=== PATIENT | female | born 1950 | race Caucasian/White ===

== ENCOUNTER → 2016-11-03 | Outpatient (CLI) | payer BC ==
[~2016-11-03] MED LIST: ARTHROTEC50 MG PO; CIPRO500 MG PO; HYDROCODONE BIT1 T11 PO; LIPITOR10 MG PO; MULTIPLE VITAMI1 CTB; NORVASC5 MG PO; OYSTER SHELL1000 MG PO; VICODIN 500 MG-1 TAB PO; VITAMIN D400 I1; XANAX0.5 MG PO; ZANTAC150 MG PO
[2016-11-03 12:15] LABS: BASO % 0.8 % (0.0-1.0); EOS # 0.1 10*3/uL (0.0-0.4); EOS % 2.4 % (1.0-4.0); HEMATOCRIT 40.6 % (37.0-47.0); HEMOGLOBIN 13.3 g/dl (12.0-16.0); LYMPH # 1.2 10*3/uL (1.3-4.4); LYMPH % 32.6 % (27.0-41.0); MEAN CELL VOLUME 95.1 fl (81.0-99.0); MEAN CORPUSCULAR HGB 31.1 pg (27.0-31.0); MEAN CORPUSCULAR HGB CONC 32.8 g/dl (33.0-37.0); MEAN PLATELET VOLUME 10.1 fl (9.6-12.3); MONO # 0.3 10*3/uL (0.1-1.0); MONO % 8.9 % (3.0-9.0); PLATELET COUNT AUTOMATED 230 10*3/uL (130-400); RED BLOOD COUNT 4.27 10*6/uL (4.10-5.10); RED CELL DISTRI WIDTH 12.9 % (0-14.5); WHITE BLOOD COUNT 3.7 10*3/uL (4.8-10.8)
[2016-11-03 12:19] LABS: ALKALINE PHOSPHATASE 44 U/L (45-117); BILIRUBIN, TOTAL 0.5 mg/dl (0.2-1.0); BUN 15 mg/dl (7-24); CARBON DIOXIDE 28 mmol/L (21-32); CHLORIDE 108 mmol/L (98-107); CHOLESTEROL 278 mg/dL (<200); EST GLOM FILT AFRICAN AMERICAN > 60 ml/min; FREE T4 0.96 ng/dl (0.76-1.46); GLUCOSE 95 mg/dL (65-99); HDL CHOLESTEROL 65 mg/dl (40-60); LDL CHOLESTEROL 189 mg/dL (9-159); POTASSIUM 4.1 mmol/L (3.5-5.1); SGOT/AST 15 IU/L (3-35); SGPT/ALT 44 U/L (12-78); SODIUM 143 mmol/L (136-145); TOTAL PROTEIN 7.4 gm/dL (6.4-8.2); TRIGLYCERIDES 120 mg/dl (<150); VLDL CHOLESTEROL 24 mg/dL (6-40)
[2016-11-03 12:51] LABS: VITAMIN D, 25-HYDROXY 29.9 ng/mL (30-100)
[2016-11-03 12:56] LABS: FOLIC ACID > 24.00 ng/mL (>5.38)
== END | disposition home or self-care (01) ==
LOC: LAB 11:08
PROVIDERS: Internal Medicine
DX: Z00.00 Encounter for general adult medical examination without abnormal findings (principal); Z13.1 Encounter for screening for diabetes mellitus; Z13.21 Encounter for screening for nutritional disorder; Z13.220 Encounter for screening for lipoid disorders; R53.81 Other malaise; E55.9 Vitamin D deficiency, unspecified

== ENCOUNTER → 2017-08-11 | Day surgery (SDC) | payer OTHER ==
[~2017-08-11] MED LIST changes: +OMEPRAZOLE D/R20 MG PO
--- NOTE | ~2017-08-11 | O ---
[place], [place] OPERATIVE NOTE NAME: HARIS MATA UNIT #: [id number] ROOM: DOCTOR: ELLIOTT HAGEN MD BIRTHDATE: [birth year] DOS: 08/11/2017 GASTROENDOSCOPIC REPORT INDICATIONS: The patient is a 66-year-old with chief complaint of dyspepsia, dysphagia as well as colonic screening. ALLERGIES: No known medication. PAST MEDICAL HISTORY: Diabetes, hypertension, hyperlipidemia. PAST SURGICAL HISTORY: Appendectomy. FAMILY HISTORY: Noncontributory. PROCEDURE: Today's procedure part of investigation is panendoscopy and colonoscopy. PREMEDICATION: Versed and Diprivan. SCOPE: Olympus forward-viewing gastroscope Q10 video. REPORT: After putting the patient in left lateral position and application of lubricant to the scope, the scope was introduced. Thereafter, under direct visualization, advanced through the length of esophagus without difficulty. Esophagus cervicothoracic distally carefully examined and distal esophagitis, hiatal hernia, esophageal benign stricture, all were noticed so far. Hiatal hernia approximately 1 cm and half. Gastric pouch was entered. Gastritis seen. Antral biopsy obtained for H. pylori. Duodenal bulb, second and third part within normal limits. The patient was gradually extubated to the proximal stomach. Balloon size 20 was introduced into the gastric pouch and dilated and inflated to size 20 and orally gradually extubated. Highest resistance and mid esophagus and upper esophageal anatomy was experienced. Air was suctioned out. The patient was extubated, tolerated procedure well. IMPRESSION: Benign esophageal stricture, status post balloon dilation to size 20. Small hiatal hernia, distal esophagitis, gastritis, status post biopsy. PLAN AND DISCUSSION: We are going to keep her on a trial of PPI therapy, i.e., omeprazole 40 mg 1 daily and we will proceed with colonoscopic evaluation. [place], [place] OPERATIVE NOTE NAME: HARIS MATA UNIT #: [id number] ROOM: DOCTOR: ELLIOTT HAGEN MD BIRTHDATE: [birth year] ELLIOTT HAGEN MD CM:OPRECORD:OPERATIVE NOTE 1343 1403 MOIZ HAGEN MD 08/11/17 1402 interface
--- NOTE | ~2017-08-11 | O ---
[place], [place] OPERATIVE NOTE NAME: HARIS MATA UNIT #: [id number] ROOM: DOCTOR: ELLIOTT HAGEN MD BIRTHDATE: [birth year] DOS: 08/11/2017 GASTROENDOSCOPIC REPORT INDICATIONS: The patient has presented for colonic screening. PROCEDURE: Today's procedure part of investigation is colonoscopy plus multiple polypectomy. PREMEDICATION: Versed and Diprivan. SCOPE: Olympus forward-viewing colonoscope 10L video. REPORT: After putting the patient in left lateral position and application of lubricant to rectal pouch and digital examination, scope was introduced. Thereafter, under direct visualization, advanced through the length of colon without difficulty. Colon mucosa and vascularity carefully examined. Diverticulosis mostly concentrated about sigmoid colon was identified. Scope was negotiated to the cecum and gradually withdrawn. Multiple sessile polypoid lesion with snare polypectomy, hepatic flexure x 3 and from splenic flexure x 2 along with a piecemeal polypectomy. The patient was gradually extubated and tolerated procedure well. IMPRESSION: Multiple colonic polyp; 3 at hepatic flexure, 3 at the splenic flexure, status post snare and piecemeal polypectomies, diverticulosis. PLAN: High-fiber diet. ACTIVITY: Ad tenisha. FOLLOWUP: As outpatient. Thank you very much indeed for your kind referral. [place], [place] OPERATIVE NOTE NAME: HARIS MATA UNIT #: [id number] ROOM: DOCTOR: ELLIOTT HAGEN MD BIRTHDATE: [birth year] ELLIOTT HAGEN MD CM:OPRECORD:OPERATIVE NOTE 1343 1405 ELLIOTT HAGEN MD 08/11/17 1405 interface
[2017-08-11 12:12] VITALS: BP 168/91
[2017-08-11 13:38] VITALS: BP 168/91
[2017-08-11 13:52] VITALS: BP 130/69
[2017-08-11 14:07] VITALS: BP 130/72
== END ==
LOC: SDC 08-10 08:00
DX: Z12.11 Encounter for screening for malignant neoplasm of colon (principal); E11.9 Type 2 diabetes mellitus without complications; I10 Essential (primary) hypertension; E78.5 Hyperlipidemia, unspecified; Z90.49 Acquired absence of other specified parts of digestive tract; K29.50 Unspecified chronic gastritis without bleeding; K31.7 Polyp of stomach and duodenum; D12.3 Benign neoplasm of transverse colon; K57.30 Diverticulosis of large intestine without perforation or abscess without bleeding; Z87.891 Personal history of nicotine dependence; Z79.899 Other long term (current) drug therapy

== ENCOUNTER → 2017-09-01 | Outpatient (CLI) | payer OTHER ==
[2017-09-01 12:19] LABS: BASO % 0.5 % (0.0-1.0); EOS # 0.1 10*3/uL (0.0-0.4); EOS % 2.1 % (1.0-4.0); HEMATOCRIT 39.3 % (37.0-47.0); HEMOGLOBIN 13.5 g/dl (12.0-16.0); LYMPH # 1.5 10*3/uL (1.3-4.4); LYMPH % 34.7 % (27.0-41.0); MEAN CORPUSCULAR HGB 31.6 pg (27.0-31.0); MEAN CORPUSCULAR HGB CONC 34.4 g/dl (33.0-37.0); MEAN PLATELET VOLUME 10.3 fl (9.6-12.3); MONO # 0.3 10*3/uL (0.1-1.0); NEUT # 2.4 10*3/uL (2.3-7.9); NEUT % 55.5 % (47.0-73.0); PLATELET COUNT AUTOMATED 235 10*3/uL (130-400); RED BLOOD COUNT 4.27 10*6/uL (4.10-5.10); RED CELL DISTRI WIDTH 12.4 % (0-14.5); WHITE BLOOD COUNT 4.3 10*3/uL (4.8-10.8)
[2017-09-01 12:53] LABS: ALBUMIN 3.9 gm/dl (3.1-4.5); ALKALINE PHOSPHATASE 52 U/L (45-117); BUN 14 mg/dl (7-24); CHLORIDE 109 mmol/L (98-107); CHOLESTEROL 183 mg/dL (<200); CREATININE 0.74 mg/dL (0.55-1.02); HDL CHOLESTEROL 46 mg/dl (40-60); LDL CHOLESTEROL 98 mg/dL (9-159); POTASSIUM 4.1 mmol/L (3.5-5.1); SGOT/AST 22 IU/L (3-35); SGPT/ALT 54 U/L (12-78); SODIUM 143 mmol/L (136-145); TOTAL PROTEIN 7.2 gm/dL (6.4-8.2); TRIGLYCERIDES 194 mg/dl (<150); VLDL CHOLESTEROL 39 mg/dL (6-40)
[2017-09-01 13:41] LABS: VITAMIN D, 25-HYDROXY 24.6 ng/mL (30-100)
== END | disposition home or self-care (01) ==
LOC: LAB 11:46
PROVIDERS: Internal Medicine
DX: E11.9 Type 2 diabetes mellitus without complications (principal); E78.2 Mixed hyperlipidemia; R53.81 Other malaise

== ENCOUNTER → 2017-09-06 | Outpatient (CLI) | payer OTHER | END | disposition home or self-care (01) | LOC: RAD 08:00 | DX: Z78.0 Asymptomatic menopausal state (principal) ==

== ENCOUNTER → 2017-09-19 | Outpatient (CLI) | payer OTHER | END | disposition home or self-care (01) | LOC: MAMMO 03:44 | DX: Z12.31 Encounter for screening mammogram for malignant neoplasm of breast (principal) ==

== ENCOUNTER → 2018-07-02 | Outpatient (CLI) | payer OTHER ==
[2018-07-02 08:29] LABS: BASO % 0.6 % (0.0-1.0); EOS # 0.2 10*3/uL (0.0-0.4); EOS % 3.6 % (1.0-4.0); HEMATOCRIT 42.1 % (37.0-47.0); HEMOGLOBIN 13.6 g/dl (12.0-16.0); LYMPH # 1.6 10*3/uL (1.3-4.4); LYMPH % 29.5 % (27.0-41.0); MEAN CELL VOLUME 95.2 fl (81.0-99.0); MEAN CORPUSCULAR HGB 30.8 pg (27.0-31.0); MEAN CORPUSCULAR HGB CONC 32.3 g/dl (33.0-37.0); MEAN PLATELET VOLUME 10.7 fl (9.6-12.3); MONO # 0.5 10*3/uL (0.1-1.0); MONO % 8.6 % (3.0-9.0); NEUT # 3.1 10*3/uL (2.3-7.9); NEUT % 57.5 % (47.0-73.0); PLATELET COUNT AUTOMATED 230 10*3/uL (130-400); RED BLOOD COUNT 4.42 10*6/uL (4.10-5.10); RED CELL DISTRI WIDTH 12.5 % (0-14.5); WHITE BLOOD COUNT 5.3 10*3/uL (4.8-10.8)
[2018-07-02 08:36] LABS: ALKALINE PHOSPHATASE 41 U/L (45-117); BUN 16 mg/dl (7-24); CHLORIDE 109 mmol/L (98-107); CHOLESTEROL 167 mg/dL (<200); CREATININE 0.79 mg/dL (0.55-1.02); FREE T4 0.99 ng/dl (0.76-1.46); HDL CHOLESTEROL 44 mg/dl (40-60); LDL CHOLESTEROL 90 mg/dL (9-159); POTASSIUM 4.2 mmol/L (3.5-5.1); SGOT/AST 51 IU/L (3-35); SGPT/ALT 114 U/L (12-78); SODIUM 144 mmol/L (136-145); TOTAL PROTEIN 7.6 gm/dL (6.4-8.2); TRIGLYCERIDES 166 mg/dl (<150); VLDL CHOLESTEROL 33 mg/dL (6-40)
[2018-07-02 11:01] LABS: VITAMIN D, 25-HYDROXY 29.6 ng/mL (30-100)
== END | disposition home or self-care (01) ==
LOC: LAB 06:56
PROVIDERS: Internal Medicine
DX: Z00.00 Encounter for general adult medical examination without abnormal findings (principal); E11.9 Type 2 diabetes mellitus without complications

== ENCOUNTER → 2018-07-10 | Outpatient (CLI) | payer OTHER | END | disposition home or self-care (01) | LOC: CT 02:57 | DX: K76.0 Fatty (change of) liver, not elsewhere classified (principal); R94.5 Abnormal results of liver function studies; I70.0 Atherosclerosis of aorta; M48.07 Spinal stenosis, lumbosacral region; M51.27 Other intervertebral disc displacement, lumbosacral region; Z90.49 Acquired absence of other specified parts of digestive tract ==

== ENCOUNTER → 2018-07-17 | Outpatient (CLI) | payer OTHER ==
[2018-07-18 08:12] LABS: HEPATITIS B SURFACE AG Negative (Negative); HEPATITIS C VIRUS ANTIBODY <0.1 s/co (0.0-0.9)
== END | disposition home or self-care (01) ==
LOC: LAB 08:45
PROVIDERS: Internal Medicine
DX: R94.5 Abnormal results of liver function studies (principal)

== ENCOUNTER → 2018-08-10 | Outpatient (CLI) | payer OTHER ==
[~2018-08-10] MED LIST changes: +FISH OIL 1,2001 EAC1 PO; +FOSAMAX70 M1 PO; +GLUCOPHAGE500 M1 PO; +LEVOTHYROXINE50 MCG PO; +LISINOPRIL20 MG PO; +METFORMIN HYD1000 MG PO; +Motrin,Rufen800 MG PO; +NEXIUM40 M1 PO
== END | disposition home or self-care (01) ==
LOC: US 07-16 00:04
DX: K76.0 Fatty (change of) liver, not elsewhere classified (principal); R73.03 Prediabetes

== ENCOUNTER → 2018-08-24 | Day surgery (SDC) | payer OTHER ==
[~2018-08-24] VITALS: Ht 157.4 cm; Wt 91.6 kg
--- NOTE | ~2018-08-24 | O ---
[place], [place] OPERATIVE NOTE NAME: HARIS MATA UNIT #: [id number] ROOM: DOCTOR: ELLIOTT HAGEN MD BIRTHDATE: [birth year] DOS: 08/24/2018 GASTROENDOSCOPIC REPORT INDICATIONS: A 68-year-old patient who has presented with abdominal nonspecific pain, undergoing investigation. ALLERGIES: No known medication. PAST MEDICAL HISTORY: Hypercholesterolemia and hypothyroidism, gastroesophageal reflux, hypertension, and diabetes mellitus. PAST SURGICAL HISTORY: Appendectomy. SOCIAL HISTORY: Nonsmoker and nonalcohol consumer. PROCEDURE: Today's procedure part of investigation is colonoscopy +2 snare polypectomy, +1 piecemeal polypectomy. PREMEDICATION: Propofol. SCOPE: Olympus forward-viewing colonoscope 10L video. REPORT: After putting the patient in left lateral position and application of lubricant to the scope, the scope was introduced. Thereafter, under direct visualization, advanced through the length of colon without difficulty. Evidence of diverticulosis, particularly expressed sigmoid colon was noticed. A sessile polypoid lesion x 2 at hepatic flexure was identified, 1 with piecemeal polypectomy, 1 with snare was removed. Another polypoid lesion from cecum with snare polypectomy removed, samples recovered. The patient extubated, tolerated the procedure well. IMPRESSION: Diverticulosis, sessile colonic polyps, status post 3 polypectomies. PLAN AND DISCUSSION: High fiber fruit diet. ACTIVITY: Ad tenisha. FOLLOWUP: Routinely with you in office, p.r.n. visit with us in [facility]. [place], [place] OPERATIVE NOTE NAME: HARIS MATA UNIT #: [id number] ROOM: DOCTOR: ELLIOTT HAGEN MD BIRTHDATE: [birth year] ELLIOTT HAGEN MD CM:OPRECORD:OPERATIVE NOTE [id number] [id number] MOIZ HAGEN MD 08/24/18 1556 interface
[2018-08-24 13:20] VITALS: BP 136/71
[2018-08-24 15:29] VITALS: BP 127/97
[2018-08-24 15:44] VITALS: BP 158/77
[2018-08-24 15:59] VITALS: BP 141/86
== END | disposition home or self-care (01) ==
LOC: SDC 08-22 11:00
DX: D12.0 Benign neoplasm of cecum (principal); D12.3 Benign neoplasm of transverse colon; K63.5 Polyp of colon; K57.30 Diverticulosis of large intestine without perforation or abscess without bleeding; E78.00 Pure hypercholesterolemia, unspecified; M19.90 Unspecified osteoarthritis, unspecified site; E03.9 Hypothyroidism, unspecified; K21.9 Gastro-esophageal reflux disease without esophagitis; I10 Essential (primary) hypertension; E11.9 Type 2 diabetes mellitus without complications; E66.01 Morbid (severe) obesity due to excess calories; Z68.36 Body mass index [BMI] 36.0-36.9, adult; Z87.891 Personal history of nicotine dependence; Z90.49 Acquired absence of other specified parts of digestive tract; Z98.890 Other specified postprocedural states

== ENCOUNTER → 2019-04-29 | Outpatient (CLI) | payer MEDICARE ==
[2019-04-29 11:17] LABS: ALBUMIN 3.9 gm/dl (3.1-4.5)
[2019-04-29 11:21] LABS: BILIRUBIN, DIRECT 0.1 mg/dL (0.0-0.2); TOTAL PROTEIN 7.2 gm/dL (6.4-8.2)
== END | disposition home or self-care (01) ==
LOC: LAB 09:35
PROVIDERS: Internal Medicine
DX: R94.5 Abnormal results of liver function studies (principal)

== ENCOUNTER → 2019-08-07 | Outpatient (CLI) | payer MEDICARE | END | disposition home or self-care (01) | LOC: MAMMO 09:29 | DX: Z12.31 Encounter for screening mammogram for malignant neoplasm of breast (principal) ==

== ENCOUNTER → 2020-11-02 | Outpatient (CLI) | payer MEDICARE | END | disposition home or self-care (01) | LOC: RAD 01:49 → MAMMO 01:49 | PROVIDERS: ATTEND Internal Medicine | DX: Z12.31 Encounter for screening mammogram for malignant neoplasm of breast (principal); M85.88 Other specified disorders of bone density and structure, other site; N64.89 Other specified disorders of breast; Z78.0 Asymptomatic menopausal state ==

== ENCOUNTER → 2021-06-03 | Outpatient (CLI) | payer MEDICARE | END | disposition home or self-care (01) | LOC: INJECTION 04-28 09:00 | PROVIDERS: ATTEND Internal Medicine | DX: M81.0 Age-related osteoporosis without current pathological fracture (principal) ==

== ENCOUNTER → 2021-08-17 | Outpatient (CLI) | payer MEDICARE | END | disposition home or self-care (01) | LOC: COVID19 15:17 | PROVIDERS: ATTEND Internal Medicine | DX: Z20.822 Contact with and (suspected) exposure to COVID-19 (principal) ==

== ENCOUNTER → 2021-12-01 | Outpatient (CLI) | payer MEDICARE ==
[~2021-12-01] MED LIST changes: +TRAD5TAB1 PO
[2021-12-01 08:41] VITALS: BP 106/63
== END | disposition home or self-care (01) ==
LOC: INJECTION 01:34
PROVIDERS: ATTEND Internal Medicine
DX: M81.0 Age-related osteoporosis without current pathological fracture (principal); I10 Essential (primary) hypertension; E11.9 Type 2 diabetes mellitus without complications; K21.9 Gastro-esophageal reflux disease without esophagitis; E78.00 Pure hypercholesterolemia, unspecified; G89.29 Other chronic pain

== ENCOUNTER → 2022-06-16 | Outpatient (CLI) | payer MEDICARE | END | disposition home or self-care (01) | LOC: MAMMO 08:30 | PROVIDERS: ATTEND Internal Medicine | DX: Z12.31 Encounter for screening mammogram for malignant neoplasm of breast (principal) ==

== ENCOUNTER → 2022-07-19 | Outpatient (CLI) | payer MEDICARE ==
[~2022-07-19] MED LIST changes: +MELOXICAM7.5 MG PO
[2022-07-19 09:54] VITALS: BP 176/77
== END | disposition home or self-care (01) ==
LOC: INJECTION 09:35
PROVIDERS: ATTEND Internal Medicine
DX: M81.0 Age-related osteoporosis without current pathological fracture (principal); I10 Essential (primary) hypertension; E11.9 Type 2 diabetes mellitus without complications; E78.00 Pure hypercholesterolemia, unspecified; K21.9 Gastro-esophageal reflux disease without esophagitis; G89.29 Other chronic pain; Z87.891 Personal history of nicotine dependence

== ENCOUNTER → 2023-07-27 | Outpatient (CLI) | payer MEDICARE | END | disposition home or self-care (01) | LOC: MAMMO 03:36 | PROVIDERS: ATTEND Internal Medicine | DX: Z12.31 Encounter for screening mammogram for malignant neoplasm of breast (principal) ==

== ENCOUNTER → 2023-09-05 | Outpatient (CLI) | payer OTHER | END | disposition home or self-care (01) | LOC: RESCLI 07:48 | PROVIDERS: ATTEND Student in an Organized Health Care Education/Training Program | DX: I10 Essential (primary) hypertension (principal); E78.5 Hyperlipidemia, unspecified; J30.2 Other seasonal allergic rhinitis; E11.9 Type 2 diabetes mellitus without complications; M19.90 Unspecified osteoarthritis, unspecified site; E03.9 Hypothyroidism, unspecified; F41.9 Anxiety disorder, unspecified; Z87.891 Personal history of nicotine dependence; Z98.890 Other specified postprocedural states; Z79.84 Long term (current) use of oral hypoglycemic drugs; Z79.899 Other long term (current) drug therapy ==

== ENCOUNTER → 2023-10-12 | Outpatient (CLI) | payer OTHER | END | disposition home or self-care (01) | LOC: US 07:53 | PROVIDERS: ATTEND Physician Assistant | DX: D48.5 Neoplasm of uncertain behavior of skin (principal) ==